=== PATIENT | female | born 1965 | race Caucasian/White ===

== ENCOUNTER 2020-01-24 06:56 | Outpatient (CLI) | payer OTHER, SELFPAY ==
--- NOTE | 2020-01-24 | US_ITS ---
WS: [id number] ABDOMINAL ULTRASOUND LIMITED REASON FOR VISIT: STEATOSIS OF THE LIVER. HCC SCREEENING. TECHNIQUE: Grayscale and Doppler ultrasound examination of the abdomen. FINDINGS: Pancreas: Normal Abdominal aorta and IVC: Normal Liver: Liver measures 16.0 cm in length. Fatty infiltration of the liver. Gallbladder: Gallbladder wall thickness measures 0.3 mm. Common bile duct measures 0.47 cm. Right kidney: Right kidney measures 9.8 cm x 5.6 cm x 4.0 cm. Right kidney cortex measures 1.1 cm. Th e cortex measured 1.13 cm adjacent to the inferior pole of the right kidney is a solid lesion measure s 4.67 x 2.37 x 4.39 cm this appears to be arising off the cortex of the kidney and we recommend foll ow-up with CT with contrast to evaluate this area or MRI. US/US abdomen limited [id number] IMPRESSION: Fatty infiltration of the liver. The solid densities greater than 4 cm is seen along the inferior pole of the ri ght kidney we recommend follow-up with CT with contrast or MRI to rule out a tu mor.
== END 2020-01-24 06:57 | disposition home or self-care (01) ==
PROVIDERS: Family Provider Family Medicine; Visit Provider Internal Medicine Gastroenterology
DX: K76.0 Fatty (change of) liver, not elsewhere classified (principal); N28.89 Other specified disorders of kidney and ureter
CPT/HCPCS: 76705

== ENCOUNTER 2020-02-17 13:00 | Outpatient (CLI) | payer OTHER, SELFPAY ==
--- NOTE | 2020-02-17 13:08 | CT_ITS ---
WS: [id number] CT scan of the abdomen with IV contrast. Additional two-dimensional coronal and sagittal reconstructi on was performed. 02/17/2020 Clinical Data: RENAL MASS Comparison: Abdomen ultrasound, 01/24/2020 DLP: 853.[address] scans at [facility] use at least one of these dose optimization techniques: automat ed exposure control; mA and/or kV adjustment per patient size (includes targeted exams where dose is matched to clinical indication); or iterative reconstruction. Findings: The lower lungs show no nodules, masses or effusions. The gallbladder, spleen, adrenal glands and pancreas are normal. No liver masses are seen. However th ere is surface irregularity of the left lobe which can be seen with cirrhosis. The kidneys show equal bilateral contrast excretion with no no masses, hydronephrosis or renal calcul i. Specifically the right kidney is normal. There is a small inferior cortical cyst of the left kidne y. The abdominal aorta is normal in size with minimal calcification in the wall. No appendicitis is seen. The stomach, small bowel and colon are unremarkable. No mass, abscess, ascit es, adenopathy, obstruction or free air is seen. The patient has had a posterior lumbar fusion of the L4-L1 vertebra. CT/CT abdomen w con* [id number] Impression: 1. Negative for right renal mass. 2. Negative for acute intra-abdominal abnormalities. 3. Minimal surface irregularity of the left lobe of the liver which can be seen with cirrhosis.
[2020-02-17] MEDS: iohexol 300 mg/mL 100 mL Btl IV (13:29)
== END 2020-02-17 13:01 | disposition home or self-care (01) ==
LOC: RADWPI 13:06
PROVIDERS: Family Provider Family Medicine; PCP Family Medicine; Visit Provider Family Medicine
DX: N28.9 Disorder of kidney and ureter, unspecified (principal)
CPT/HCPCS: 74160; Q9967

== ENCOUNTER 2020-03-10 12:55 | Outpatient (CLI) | payer OTHER, SELFPAY ==
--- NOTE | 2020-03-10 13:01 | MR_ITS ---
WS: [id number] MRI RIGHT KNEE NONCONTRAST TECHNIQUE: Axial PD, coronal PD fat sat, coronal PD, sagittal PD, and sagittal PD fat-sat images obta ined. CLINICAL INFORMATION: RIGHT KNEE PAIN/WORK RELATED INJURY COMPARISON: None. FINDINGS: Distal quadriceps and patella tendons are intact. Hypertrophic patella. Anterior and posterior crucia te ligaments are intact. Normal medial and lateral meniscus. No acute appearing meniscal tears. Mild chondromalacia patella. No subchondral edema. Medial and lateral collateral ligaments are intact. Nor mal popliteal fossa. MR/MR knee RT wo con* [id number] IMPRESSION: 1. Anterior and posterior cruciate ligaments are intact. 2. Medial and lateral meniscus are normal in appearance. No acute meniscal tea rs. 3. Hypertrophic patella with mild chondromalacia. No subchondral edema. 4. Medial and lateral collateral ligaments are intact.
== END 2020-03-10 12:56 | disposition home or self-care (01) ==
PROVIDERS: Family Provider Family Medicine; PCP Family Medicine; Visit Provider Family Medicine
DX: M25.561 Pain in right knee (principal); M22.41 Chondromalacia patellae, right knee; Y99.0 Civilian activity done for income or pay
CPT/HCPCS: 73721

== ENCOUNTER 2020-07-27 12:29 | Outpatient (CLI) | payer OTHER, SELFPAY ==
--- NOTE | 2020-07-27 12:35 | US_ITS ---
WS: [id number] RIGHT UPPER QUADRANT ULTRASOUND HISTORY: LIVER CIRRHOSIS COMPARISON: 01/24/2020 Liver: 15.2 cm in length. Very heterogeneous nodular appearance of the liver. Surface of the liver is irregular. Increased fat near the saima hepatis. Gallbladder: Normally distended gallbladder with no stones or wall thickening. CBD: 0.2 cm Pancreas: Not well visualized. Right kidney: 10.1 cm in length. Normal size and echogenicity. No hydronephrosis or mass. Aorta and IVC: Unremarkable abdominal aorta and IVC. No ascites. US/US abdomen limited [id number] IMPRESSION: 1. Very limited evaluation of the RIGHT upper quadrant due to body habitus. 2. Heterogeneous nodular appearance of the liver. No nodules or masses were no david on prior CT from 02/17/2020. Nodule and heterogeneity may be on the basis of cirrhosis. Cannot completely exclude a mass based upon the ultrasound appearan ce. Three-phase hepatic CT can be obtained for further evaluation and exclude h epatoma. 3. Negative gallbladder.
== END 2020-07-27 12:30 | disposition home or self-care (01) ==
LOC: US 12:32
PROVIDERS: PCP Family Medicine; Visit Provider Internal Medicine Gastroenterology
DX: K74.60 Unspecified cirrhosis of liver (principal); K75.81 Nonalcoholic steatohepatitis (NASH)
CPT/HCPCS: 76705

== ENCOUNTER 2020-08-12 07:47 | Outpatient (CLI) | payer OTHER, SELFPAY ==
--- NOTE | 2020-08-12 08:15 | MR_ITS ---
WS: [id number] MRI HEAD WITH CONTRAST TECHNIQUE: Sagittal T1, T2 axial, T2 axial FLAIR, axial susceptibility weighted imaging, axial diffus ion weighted images, and coronal T2 images were obtained. Pre and post-T1 axial and post T1 coronal i mages. ADC and FSPGR images. CLINICAL INFORMATION: CONCUSSION W/O LOSS OF CONSCIOUSNESS COMPARISON: None. FINDINGS: No evidence restricted diffusion to suggest acute ischemia. Ventricular system and basal cisterns are patent. No hydrocephalus. Normal black-white differentiation. Only minimal small vessel changes. Mild parenchymal volume loss. Normal posterior fossa. Normal vascular flow voids at the skull base. No ex tra axial fluid collections. No evidence of mass or mass effect. Normal optic chiasm and pituitary infundibulum. Mild symmetric atrophy temporal lobes and hippocampal formations. Mild mucosal thickening right maxillary sinus. Mild mucosal thickening mastoid air cells . Serpiginous enhancement left basal ganglia consistent with venous angioma with focal hemosiderin comp atible with associated cavernoma. No evidence of recent hemorrhage or edema. Cavernoma measures appro ximately 7 mm. Normal optic chiasm and pituitary infundibulum. Normal cavernous sinuses and Meckel's cave. Normal visualized dural venous sinuses. No other significant findings. MR/MR head wo/w con [id number] IMPRESSION: 1. No evidence of restricted diffusion to suggest acute ischemia. 2. Minimal small vessel changes. Mild parenchymal volume loss. 3. Venous angioma in the left basal ganglia with focal hemosiderin consistent with cavernoma. No evidence of edema or recent hemorrhage. 4. Otherwise no abnormal intracranial enhancement. 5. Mild mucosal thickening in the right maxillary sinus and mastoid air cells.
== END 2020-08-12 07:48 | disposition home or self-care (01) ==
LOC: RADWPI 07:52
PROVIDERS: PCP Family Medicine; Visit Provider Family Medicine
DX: X58.XXXA Exposure to other specified factors, initial encounter; H91.90 Unspecified hearing loss, unspecified ear; S06.0X0A Concussion without loss of consciousness, initial encounter; R51.9 Headache, unspecified; Q28.3 Other malformations of cerebral vessels
CPT/HCPCS: 70553; A9579

== ENCOUNTER 2020-10-26 13:14 | Outpatient (CLI) | payer OTHER, SELFPAY ==
--- NOTE | 2020-10-26 13:22 | USCV_ITS ---
Edith Caceres Age: 55 Gender: F : 1965 Exam Date: 10/26/2020 13:37 Ordering Phys: Annetta Cohen MD Technologist: Sarah Mckeon [place] [facility] [place]: DOPPLER OF LIVER FOR PV HTN AND CIRRHOSIS Findings LIVER APPEARS HETEROGENOUS MPV, RPV, LPV ALL PATENT WITH FLOW MHA, RHA, LHA ALL PATENT WITH FLOW MHV, RPV, LPV ALL PATENT WITH TRIPHASIC FLOW SV PATENT SA PATENT Conclusions Cirrhotic liver. Normal portal vein and hepatic vein doppler. Dr. Valeria Morse DO (Electronically Signed) Final Date: 26 October 2020 16:19 S
== END 2020-10-26 13:15 | disposition home or self-care (01) ==
LOC: US 13:15
PROVIDERS: PCP Family Medicine; Visit Provider Internal Medicine Gastroenterology
DX: R10.11 Right upper quadrant pain (principal); K74.69 Other cirrhosis of liver; K76.0 Fatty (change of) liver, not elsewhere classified
CPT/HCPCS: 93976; 93998

== ENCOUNTER 2020-11-25 09:54 | Outpatient (CLI) | payer OTHER, SELFPAY ==
--- NOTE | 2020-11-25 10:26 | MR_ITS ---
WS: [id number] MRCP (MAGNETIC RESONANCE CHOLANGIOPANCREATOGRAPHY) HISTORY: BILE ACID HIGH/CHRONIC RUQ PAIN, CIRRHOSIS OF THE LIVER COMPARISON: None available. TECHNIQUE: Multiple sequences are performed to evaluate the intra and extrahepatic ducts. Normal appearance of the gallbladder. No filling defects are noted by MRI. There is no wall thickenin g or adjacent edema. Common bile duct and the cystic duct are normal size. There are no intraluminal filling defects. Normal appearance of the pancreatic duct. Common bile duct near the pancreatic head measures 3.4 mm. No abnormality at the pancreatic head. Nodular appearance of the liver from cirrhosis. There is very slight enlargement of the caudate lobe. At this time there is no significant atrophy of the RIGHT or LEFT lobes of the liver. No mass replac ing lesions within the liver. There is no ascites. Spleen is top normal size at 12.5 cm in length. Pr ominent splenic varices are noted in the LEFT upper abdomen. MR/MR MRCP [id number] IMPRESSION: 1. Normal gallbladder and normal common bile duct. 2. Mild changes of cirrhosis throughout the liver. 3. Spleen is top normal size with splenic varices in the LEFT upper abdomen on the basis of portal hypertension.
--- NOTE | 2020-11-25 10:27 | MR_ITS ---
WS: [id number] MRI ABDOMEN with and without CONTRAST. COMPARISON: CT abdomen 02/17/2020 Multiplanar, multisequence imaging is performed with and without contrast. Liver is not enlarged but there is a coarsened echotexture throughout the liver with mild surface irr egularity. Mild fibrotic and hepatic steatosis within both the RIGHT and LEFT lobes is diffuse. There is no discrete mass identified. No stones are identified in the gallbladder and no bile duct dilatat ion. Caudate lobe is very mildly prominent. Spleen is measuring 13.0 cm in length with no mass. No as cites or pleural fluid. No adrenal mass. Again noted are the splenic varices and distal esophageal va rices in the LEFT upper abdomen. Portal vein remains patent. No adrenal mass. Visualized aorta is normal. Upper poles of each kidney are normal. MR/MR abdomen wo/w con* [id number] IMPRESSION: 1. No evidence for hepatocellular carcinoma or enhancing mass within the liver . 2. Changes of moderate cirrhosis and hepatic steatosis throughout the liver. 3. Portal vein remains patent. 4. No bile duct dilatation. 5. Negative gallbladder. 6. Spleen is top normal size at 13.0 cm in length with splenic varices in the LEFT upper abdomen.
[2020-11-25] MEDS: gadobenate dimeglumine 20 mL vial IV (11:36)
== END 2020-11-25 09:55 | disposition home or self-care (01) ==
PROVIDERS: PCP Family Medicine; Visit Provider Internal Medicine Gastroenterology
DX: K75.81 Nonalcoholic steatohepatitis (NASH) (principal); K74.60 Unspecified cirrhosis of liver; R10.11 Right upper quadrant pain
CPT/HCPCS: 74181; 74183; A9577

== ENCOUNTER 2020-12-09 09:46 | Outpatient (CLI) | payer OTHER, SELFPAY ==
--- NOTE | 2020-12-09 10:00 | MM_ITS ---
WS: [id number] Bilateral screening digital mammogram, 12/09/2020 Clinical Data: Z12.39 - Encounter for other screening for malignant neoplasm of breast Comparison: 06/04/2019, 05/09/2018, 02/10/2017, 02/01/2017, 02/01/2016. Findings: The breast parenchymal pattern shows heterogeneous density No spiculated masses or clustered calcific ations are seen. There are no secondary signs of carcinoma. MM/[place] [id number] Impression: 1. Negative bilateral mammogram unchanged. 2. Recommend annual screening mammograms. BIRADS: 1-Negative FOLLOW UP: 1 Year Follow-up The CAD gun stock checker was used.
== END 2020-12-09 09:47 | disposition home or self-care (01) ==
LOC: RADSHAW 09:47
PROVIDERS: PCP Family Medicine; Visit Provider Obstetrics & Gynecology
DX: Z12.31 Encounter for screening mammogram for malignant neoplasm of breast (principal)
CPT/HCPCS: 77067

== ENCOUNTER → 2021-11-24 08:23 | Outpatient (BNVA) | payer OTHER, SELFPAY | PROVIDERS: PCP Family Medicine; Visit Provider Obstetrics & Gynecology | DX: Z12.4 Encounter for screening for malignant neoplasm of cervix (principal) | CPT/HCPCS: 87624 ==

== ENCOUNTER 2021-12-23 07:39 | Outpatient (CLI) | payer OTHER, SELFPAY ==
[2021-12-23 08:38] LABS: Basophils % 0.8 %; Eosinophils # 0.2 10^3/uL (0.0-0.8); Eosinophils % 3.7 %; Hematocrit 44.5 % (37.0-47.0); Lymphocytes # 1.2 10^3/uL (0.8-4.8); Lymphocytes % 23.4 %; Mean Corpuscular HGB Conc 33.7 g/dL (30.0-36.0); Mean Corpuscular Hemoglobin 31.4 pg (28.0-34.0); Mean Corpuscular Volume 93.1 fl (81-99); Mean Platelet Volume 11.8 fL (7.4-10.4); Monocytes # 0.4 10^3/uL (0.2-0.9); Monocytes % 8.5 %; Neutrophils # 3.29 10^3/uL (1.8-7.7); Neutrophils % 63.4 %; Nucleated Red Blood Cells % 0 %; Platelet Count 99 10^3/cmm (130-400); Red Blood Count 4.78 10^6/uL (4.1-5.3); Red Cell Distribution Width 13.2 % (12.1-15.1); White Blood Count 5.2 10^3/uL (4.0-10.0)
[2021-12-23 09:00] LABS: Alanine Aminotransferase 25 U/L (0-33); Alkaline Phosphatase 122 IU/L (35-105); Anion Gap 15.2 (5-19); Aspartate Amino Transferase 35 U/L (0-32); Blood Urea Nitrogen 13 mg/dL (6-20); Calcium 8.7 mg/dL (8.5-10.5); Carbon Dioxide 22 mmol/L (22-29); Chloride 101 mmol/L (98-107); Chol HDL Ratio 3.19 mg/dL (0.0-4.40); Cholesterol 201 mg/dL (0-200); Globulin 2.5 g/dL (1.3-4.6); Glomerular Filtration Rate 163.9 mL/min (90-130); Glucose 230 mg/dL (65-115); HDL Cholesterol 63 mg/dL (60-100); LDL Cholesterol Calculated 120 mg/dL (50-129); Osmolality Calculated 285 mOsm/kg (285-295); Potassium 4.2 mmol/L (3.5-5.1); Sodium 134 mmol/L (136-145); Total Bilirubin 0.8 mg/dL (0.15-1.2); Total Protein 6.5 g/dL (6.6-8.7); Triglycerides 88 mg/dL (0-150)
[2021-12-23 09:05] LABS: Estmated Average Glucose 192; Hemoglobin A1C 8.3 % (4.0-6.0)
[2021-12-29 14:32] LABS: Miscellaneous Test SEE COMMENTS
[2021-12-29 14:33] LABS: Miscellaneous Test SEE COMMENTS
== END 2021-12-23 07:40 | disposition home or self-care (01) ==
PROVIDERS: PCP Family Medicine; Visit Provider Family Medicine
DX: K74.60 Unspecified cirrhosis of liver (principal); E11.9 Type 2 diabetes mellitus without complications; D69.6 Thrombocytopenia, unspecified; K76.0 Fatty (change of) liver, not elsewhere classified; D64.9 Anemia, unspecified
CPT/HCPCS: 80053; 80061; 82105; 82542; 83036; 85025; 85610

== ENCOUNTER 2021-12-28 09:54 | Outpatient (CLI) | payer OTHER, SELFPAY ==
--- NOTE | 2021-12-28 10:02 | MM_ITS ---
WS: [id number] VIEWS: MLO and CC views both breasts. 3D digital tomosynthesis is also included in this exam. Comparison made with prior exam of 02/01/2016, 02/01/2017, 05/09/2018, 06/04/2019, 12/09/2020.. Findings: There was no sign of mass, architectural distortion or suspicious calcification in either breast. He terogeneously dense MM/[place] [id number] Impression: BI-RADS: 2-Benign FOLLOW-UP: 1 Year Follow-up This mammogram was also analyzed by the Computer Aided Detection System R2 Imag e House Mover Supervisor.
== END 2021-12-28 09:55 | disposition home or self-care (01) ==
PROVIDERS: PCP Family Medicine; Visit Provider Obstetrics & Gynecology
DX: Z12.31 Encounter for screening mammogram for malignant neoplasm of breast (principal)
CPT/HCPCS: 77063; 77067

== ENCOUNTER 2022-02-24 08:22 | Outpatient (RCR) | payer OTHER, SELFPAY | END 2022-03-06 23:59 | disposition home or self-care (01) | LOC: SPT 08:22 | PROVIDERS: PCP Family Medicine; Referring Provider Family Medicine; Visit Provider Family Medicine | DX: M24.819 Other specific joint derangements of unspecified shoulder, not elsewhere classified (principal) | CPT/HCPCS: 97110; 97140; 97161 ==

== ENCOUNTER 2022-03-07 06:00 | Outpatient (RCR) | payer OTHER, SELFPAY | END 2022-04-06 23:59 | disposition home or self-care (01) | LOC: SPT 06:00 | PROVIDERS: PCP Family Medicine; Referring Provider Family Medicine; Visit Provider Family Medicine | DX: M24.819 Other specific joint derangements of unspecified shoulder, not elsewhere classified (principal) | CPT/HCPCS: 97110; 97140 ==

== ENCOUNTER 2022-04-26 07:07 | Outpatient (CLI) | payer OTHER, SELFPAY ==
--- NOTE | 2022-04-26 07:23 | MR_ITS ---
WS: [id number] MRI RIGHT SHOULDER HISTORY: R ROTATOR CUFF/TENDINITIS COMPARISON: None available. TECHNIQUE: Multiplanar sequences of the shoulder joint are submitted. Moderate hypertrophy clavicular head with encroachment upon the myotendinous region of the supraspina tus. Increased fluid along the AC ligament. Mild downsloping of the acromion causing subacromial impi ngement with an associated osteophyte. There is a small amount of fluid in the subacromial and subdel toid bursa. No os acromion. Small split tear in the biceps tendon in the bicipital groove. No subluxa tion. Mildly high riding humeral head. Loss of cartilage surrounding the humeral head with osteophytosis an d glenohumeral joint space narrowing. Moderate tendinopathy involving the distal supraspinatus tendon . Very small insertion site tear with fluid extending along the intrasubstance portion of the tendon. There is additional increased T2 signal involving the distal infraspinatus tendon where it attaches to the humeral head. Consistent with insertion site tear. Mild tendinopathy in the subscapularis tend on. There is mild thickening and increased T2 signal in the tendon but no displacement. Coracohumeral interval narrowing. Mild fraying along the surfaces of the labrum. No definite labral tears identified. There is some mot ion artifact causing limitation for subtle findings. Middle glenohumeral ligament cannot be followed in its entirety. May be small caliber and redundant or partially torn. MR/MR shoulder RT wo con* [id number] IMPRESSION: 1. Suboptimal evaluation due to patient motion artifact. 2. Moderate AC joint arthritis with mild AC ligament sprain. 3. AC joint encroachment upon the supraspinatus myotendinous insertion. 4. Downsloping acromion with subacromial impingement. 5. Small insertion site tears of the supraspinatus and infraspinatus tendons. No retraction or muscle atrophy. 6. Split tear biceps tendon in the bicipital groove. 7. Mild flattening with subchondral cystic changes involving the posterior lat eral humeral head at the site of the infraspinatus tendon tear. 8. Loss of cartilage with cortical irregularity involving the humeral head and glenohumeral joint arthritis.
== END 2022-04-26 07:08 | disposition home or self-care (01) ==
LOC: RAD 07:09
PROVIDERS: PCP Family Medicine; Visit Provider Orthopaedic Surgery
DX: M75.81 Other shoulder lesions, right shoulder (principal); M13.811 Other specified arthritis, right shoulder; S43.51XA Sprain of right acromioclavicular joint, initial encounter; X58.XXXA Exposure to other specified factors, initial encounter; M75.101 Unspecified rotator cuff tear or rupture of right shoulder, not specified as traumatic
CPT/HCPCS: 73221

== ENCOUNTER 2022-06-08 06:00 | Outpatient (RCR) | payer OTHER, SELFPAY | END 2022-07-06 23:59 | disposition home or self-care (01) | LOC: SPT 06:00 | PROVIDERS: PCP Family Medicine; Visit Provider Orthopaedic Surgery | DX: Z47.89 Encounter for other orthopedic aftercare (principal) | CPT/HCPCS: 97110; 97140; 97161 ==

== ENCOUNTER 2022-07-07 06:00 | Outpatient (RCR) | payer OTHER, SELFPAY | END 2022-08-06 23:59 | disposition home or self-care (01) | LOC: SPT 06:00 | PROVIDERS: PCP Family Medicine; Visit Provider Orthopaedic Surgery | DX: Z47.89 Encounter for other orthopedic aftercare (principal) | CPT/HCPCS: 97110 ==

== ENCOUNTER → 2022-07-14 10:56 | Outpatient (BNVA) | payer OTHER, SELFPAY | PROVIDERS: PCP Family Medicine; Visit Provider Family Medicine | DX: E11.9 Type 2 diabetes mellitus without complications (principal); K74.69 Other cirrhosis of liver; M19.90 Unspecified osteoarthritis, unspecified site | CPT/HCPCS: 83036 ==

== ENCOUNTER 2022-08-07 06:00 | Outpatient (RCR) | payer OTHER, SELFPAY | END 2022-08-23 16:07 | disposition home or self-care (01) | LOC: SPT 06:00 | PROVIDERS: PCP Family Medicine; Visit Provider Orthopaedic Surgery | DX: Z47.89 Encounter for other orthopedic aftercare (principal) | CPT/HCPCS: 97110 ==

== ENCOUNTER → 2022-10-27 08:10 | Outpatient (BNVA) | payer OTHER, SELFPAY | PROVIDERS: PCP Family Medicine; Visit Provider Family Medicine | DX: E11.9 Type 2 diabetes mellitus without complications (principal); K74.69 Other cirrhosis of liver; M19.90 Unspecified osteoarthritis, unspecified site; K74.60 Unspecified cirrhosis of liver | CPT/HCPCS: 80053; 80061; 82607; 83036; 85025 ==

== ENCOUNTER → 2022-11-30 10:50 | Outpatient (BNVA) | payer OTHER, SELFPAY | PROVIDERS: PCP Family Medicine; Visit Provider Obstetrics & Gynecology | DX: Z12.4 Encounter for screening for malignant neoplasm of cervix (principal); Z01.419 Encounter for gynecological examination (general) (routine) without abnormal findings; C50.919 Malignant neoplasm of unspecified site of unspecified female breast | CPT/HCPCS: 87624 ==

== ENCOUNTER → 2022-12-28 15:46 | Outpatient (BNVA) | payer OTHER, SELFPAY | PROVIDERS: PCP Family Medicine; Visit Provider Specialist | DX: M25.562 Pain in left knee (principal); G89.29 Other chronic pain | CPT/HCPCS: 73560; 73565; 99204 ==

== ENCOUNTER 2022-12-29 07:44 | Outpatient (CLI) | payer OTHER, SELFPAY ==
--- NOTE | 2022-12-29 07:55 | MM_ITS ---
WS: [id number] BILATERAL SCREENING DIGITAL TOMOSYNTHESIS MAMMOGRAM WITH CAD HISTORY: SCREENING COMPARISON: 12/28/2021 and 12/09/2020 Bilateral CC and MLO views with tomosynthesis and synthetic mammography submitted. Computer aided det ection analyzed. Breast composition: The breasts are heterogeneously dense, which may obscure small masses. No suspici ous masses, microcalcifications or architectural distortion. MM/[place] [id number] IMPRESSION: BI-RADS: 1-Negative FOLLOW UP: 1 Year Follow-up
== END 2022-12-29 07:45 | disposition home or self-care (01) ==
PROVIDERS: PCP Family Medicine; Visit Provider Obstetrics & Gynecology
DX: Z12.31 Encounter for screening mammogram for malignant neoplasm of breast (principal)
CPT/HCPCS: 77063; 77067

== ENCOUNTER 2023-01-09 12:44 | Outpatient (RCR) | payer OTHER, SELFPAY | END 2023-02-03 23:59 | disposition home or self-care (01) | LOC: SPT 12:44 | PROVIDERS: PCP Family Medicine; Visit Provider Specialist | DX: M25.562 Pain in left knee (principal) | CPT/HCPCS: 97110; 97161 ==

== ENCOUNTER → 2023-01-25 13:38 | Outpatient (BNVA) | payer OTHER, SELFPAY | PROVIDERS: PCP Family Medicine; Visit Provider Specialist | DX: M25.562 Pain in left knee (principal) | CPT/HCPCS: 99213 ==

== ENCOUNTER 2023-09-21 20:00 | Outpatient (CLI) | payer OTHER, SELFPAY | END 2023-09-21 20:01 | disposition home or self-care (01) | LOC: SLEEP 09-22 05:42 | PROVIDERS: PCP Family Medicine; Visit Provider Family Medicine | DX: G47.10 Hypersomnia, unspecified (principal); G47.61 Periodic limb movement disorder; R09.02 Hypoxemia | CPT/HCPCS: 95810 ==

== ENCOUNTER 2024-01-05 14:32 | Outpatient (CLI) | payer OTHER, SELFPAY ==
--- NOTE | 2024-01-05 14:40 | MM_ITS ---
WS: [id number] BILATERAL 3D TOMOSYNTHESIS DIGITAL SCREENING MAMMOGRAPHY WITH CAD CLINICAL INFORMATION: SCREENING HISTORY: Screening mammogram. No current complaints. COMPARISON: 2022 TECHNIQUE: Bilateral CC and MLO views. FINDINGS: The breasts are composed of heterogeneous fibroglandular density tissue, which can limit the detectio n of small underlying mass lesions. No suspicious mass, asymmetry, calcifications, or architectural d istortion. No evidence of malignancy. Few incidental punctate and lucent centered calcifications. MM/[place] [id number] IMPRESSION: BI-RADS: 2-Benign FOLLOW UP: 1 Year Follow-up Recommend return to annual screening mammography.
== END 2024-01-05 14:33 | disposition home or self-care (01) ==
LOC: RAD 14:34
PROVIDERS: PCP Family Medicine; Visit Provider Family Medicine
DX: Z12.31 Encounter for screening mammogram for malignant neoplasm of breast (principal); R92.323 Mammographic fibroglandular density, bilateral breasts
CPT/HCPCS: 77063; 77067

== ENCOUNTER 2025-01-06 10:10 | Outpatient (CLI) | payer OTHER, SELFPAY ==
--- NOTE | 2025-01-06 | MM_ITS ---
WS: [id number] BILATERAL SCREENING DIGITAL TOMOSYNTHESIS MAMMOGRAM WITH CAD HISTORY: ANNUAL SCREENING COMPARISON: 01/05/2024, 12/29/2022 Bilateral CC and MLO views with tomosynthesis and synthetic mammography submitted. Computer aided detection analyzed. Breast composition: The breasts are heterogeneously dense, which may obscure small masses. No suspicious masses, microcalcifications or architectural distortion. Benign calcifications in each breast. MM/MM scr tomosynthesis [id number] IMPRESSION: BI-RADS: 2 - Benign FOLLOW UP: 1 Year Follow-up
== END 2025-01-06 10:11 | disposition home or self-care (01) ==
LOC: RAD 10:11
PROVIDERS: PCP Family Medicine; Visit Provider Family Medicine
DX: Z12.31 Encounter for screening mammogram for malignant neoplasm of breast (principal); R92.333 Mammographic heterogeneous density, bilateral breasts; R92.1 Mammographic calcification found on diagnostic imaging of breast
CPT/HCPCS: 77063; 77067

== ENCOUNTER → 2025-01-20 10:03 | Outpatient (BNVA) | payer OTHER, SELFPAY | PROVIDERS: PCP Family Medicine; Visit Provider Nurse Practitioner Women's Health | DX: Z01.419 Encounter for gynecological examination (general) (routine) without abnormal findings (principal) | CPT/HCPCS: 87624 ==

== ENCOUNTER 2025-02-03 13:42 | Oncology outpatient (recurring) (ONCR) | payer OTHER, SELFPAY ==
[2025-02-03] MEDS: denosumab 60 mg SDV SUBCUT (14:17)
[2025-02-03 14:20] VITALS: BP 134/78; PULSE 70; RESP 16; TEMP 36.3; O2SAT 99
== END 2025-02-03 23:59 | disposition home or self-care (01) ==
PROVIDERS: PCP Family Medicine; Visit Provider Family Medicine
DX: M81.0 Age-related osteoporosis without current pathological fracture (principal); Z79.899 Other long term (current) drug therapy
CPT/HCPCS: 96372; J0897